=== PATIENT | male | born 1965 | race Caucasian/White ===

== ENCOUNTER 2017-04-20 12:19 | Emergency (ER) | payer MEDICAID, OTHER ==
[2017-04-20 12:23] VITALS: RESP 18; O2SAT 98
--- NOTE | 2017-04-20 13:39 | EDPHY ---
H & P Time Seen by Provider: 04/20/17 12:32 HPI/ROS: CHIEF COMPLAINT: Chin laceration HISTORY OF PRESENT ILLNESS: 51-year-old male presents to the emergency department with laceration to his left side of his chin. The patient was at home just prior to arrival and had a mechanical trip and fall hitting the left side of his chin on the side of a metal table. He did not lose consciousness. The incident happened just prior to arrival. He denies headache. Denies dental pain or jaw pain. No neck or back pain. No chest pain or difficulty breathing. No abdominal pain or vomiting. No injury to upper or lower extremities. Tetanus shot is current. REVIEW OF SYSTEMS: Constitutional: No fever, no chills. Eyes: No double or blurry vision. ENT: No sore throat. Respiratory: No cough, no shortness of breath. Cardiac: No chest pain. Gastrointestinal: No abdominal pain, vomiting or diarrhea. Genitourinary: No dysuria. Musculoskeletal: No neck or back pain. Skin: Chin laceration. No rashes. Neurological: No headache. Past Medical/Surgical History: Negative Social History: Smoking Status: Former smoker Physical Exam: General Appearance: Alert, no distress. Mentating normally and answering questions appropriately. No palpable facial bone tenderness. Eyes: Pupils equal and round. Extraocular motions are all intact. ENT: Mouth: Mucous membranes moist. Respiratory: No wheezing, rhonchi, or rales, lungs are clear to auscultation. Cardiovascular: Regular rate and rhythm. Gastrointestinal: Abdomen is soft and nontender, no masses, no rebound or guarding, bowel sounds normal. Neurological: Alert and oriented x 3, cranial nerves II through XII grossly intact Skin: 3 cm laceration to the left anterior aspect of the chin. No active bleeding noted. Warm and dry, no rashes. Musculoskeletal: Nontender to palpate along the cervical, thoracic or lumbar spine. Neck is supple. Extremities: Full range of motion and no peripheral edema. Psychiatric: Patient is oriented X 3, there is no agitation. Constitutional: Initial Vital Signs Temperature (C) 36.5 C 04/20/17 12:21 Heart Rate 89 04/20/17 12:21 Respiratory Rate 18 04/20/17 12:21 Blood Pressure 143/93 H 04/20/17 12:21 O2 Sat (%) 98 04/20/17 12:21 O2 Delivery Mode Room Air Allergies/Adverse Reactions: No Known Allergies Allergy (Unverified 04/20/17 12:23) Home Medications: Medication Instructions Recorded Fexofenadine HCl [Angelica Allergy] 60 mg PO 04/20/17 Medical Decision Making Procedures: Laceration repair. Verbal consent was obtained from the patient. The 3.5 cm laceration on the left anterior chin was anesthetized using 1% lidocaine with epinephrine. The wound was irrigated with saline, draped and explored to its base with a gloved finger. There were no deep structures involved. The wound was repaired with 6 0 Vicryl, 1 suture and 6 0 Prolene, 90 sutures. The wound repair was complex. The procedure was performed by myself. ED Course/Re-evaluation: 51-year-old male presents to the emergency department with chin laceration. The wound was repaired, see procedure note. I do not think imaging studies are indicated. No palpable facial bone tenderness. Differential Diagnosis: Including but not limited to fracture, contusion, retained foreign body Departure - Departure Disposition: Home, Routine, Self-Care Clinical Impression: Chin laceration Qualifiers: Encounter type: initial encounter Qualified Code(s): S01.81XA - Laceration without foreign body of other part of head, initial encounter Condition: Good Instructions: Care For Your Stitches (ED), Laceration (ED), Acute Wounds (ED) Additional Instructions: Wound Care Follow-Up: Removal of sutures in 7 days. Suture removal is complimentary in uncomplicated cases. Infection or abnormal findings would require reevaluation by the MD. In that case, you may be billed. Ibuprofen 600mg every 8 hours for pain as directed. Return if you develop any signs or symptoms of infection such as redness, swelling, increased pain, fever, purulent drainage. Referrals: [facility] [Other] - As per Instructions
[2017-04-20 14:28] VITALS: BP 136/74; PULSE 74; TEMP 98.4
== END 2017-04-20 14:25 | disposition home or self-care (01) ==
PROC: 0HQ1XZZ Repair Face Skin, External Approach (ICD-10-PCS; principal; 2017-04-20)
DX: S01.81XA Laceration without foreign body of other part of head, initial encounter (principal); Z87.891 Personal history of nicotine dependence; W01.198A Fall on same level from slipping, tripping and stumbling with subsequent striking against other object, initial encounter; Y92.009 Unspecified place in unspecified non-institutional (private) residence as the place of occurrence of the external cause; Y99.8 Other external cause status; Y93.89 Activity, other specified